=== PATIENT | male | born 1990 | race Two or more races ===

== ENCOUNTER 2021-04-18 03:09 | Emergency (ER) | payer MEDICAID ==
[~2021-04-18] VITALS: Ht 167.6 cm; Wt 63.6 kg
--- NOTE | 2021-04-18 03:19 | NUR ---
Urine sample tubed to lab at this time.
[2021-04-18 03:30] VITALS: BP 128/95
--- NOTE | 2021-04-18 03:36 | NUR ---
BIBA FOR SI. PATIENT PRESENTED TO [facility] REQUESTING HELP STATING HE HAD A PLAN TO [facility] A GUN AND SHOT HIMSELF. [facility] PLACED THE PATIENT ON A LEGAL HOLD FOR SI WITH A PLAN. EMS TRANSFERED PT DUE TO NO BED AVAILABLE AT [facility]. UPON ARRIVAL TO ED PATIENT WAS NO LONGER ENDORCING A PLAN, BUT CONTINUES TO ENDORCES SI. PATIENT STATES HE HAD [facility] IN [place]. PATIENT PROVIDED URINE FOR UA/UDA, CHANGED INTO GOWN, BELONGINGS COLLECTED AND SECURED IN LOCKER, GARAGE DOORS DOWN AND LOCKED.
[2021-04-18 03:39] LABS: AMPHETAMINE SCREEN, URINE Positive (Negative); BARBITURATE SCREEN, URINE Negative (Negative); BENZODIAZEPINE SCREEN, URINE Negative (Negative); CANNABINOID SCREEN, URINE Negative (Negative); COCAINE SCREEN, URINE Negative (Negative); METHADONE SCREEN, URINE Negative (Negative); OPIATE SCREEN, URINE Negative (Negative)
[2021-04-18 03:49] LABS: BASOPHILS % (AUTO) 1 % (0-1); EOSINOPHILS % (AUTO) 3 % (1-7); LYMPHOCYTES % (AUTO) 39 % (22-44); MEAN CORPUSCULAR HEMOGLOBIN 30.2 pg (27.5-34.5); MEAN CORPUSCULAR HGB CONC 33.2 g/dL (33.2-36.2); MONOCYTES % (AUTO) 12 % (2-9); NEUTROPHILS % (AUTO) 46 % (42-75); PLATELET COUNT 311 x10^3/uL (130-400); RED CELL DISTRIBUTION WIDTH 13.7 % (9.4-14.8)
[2021-04-18 03:58] LABS: ALBUMIN 3.4 g/dL (3.4-5.0); ANION GAP 6 mmol/L (5-15); CALCIUM 8.8 mg/dL (8.5-10.1); CHLORIDE 104 mmol/L (98-107); CREATININE 0.73 mg/dL (0.7-1.3); SALICYLATE LEVEL < 1.7 mg/dL (2.8-20.0)
--- NOTE | 2021-04-18 05:21 | NUR ---
REBECA JEREZ TAKING A LOOK AT PT
--- NOTE | 2021-04-18 05:31 | NUR ---
REBECA SCHMITZ) ACCEPTING DR. SOTELO
--- NOTE | 2021-04-18 05:54 | NUR ---
PATIENT SLEEPING ON [facility] AT THIS TIME, GARAGE DOORS DOWN AND LOCKED, PERSONAL BELONGINGS SECURED IN LOCKER
--- NOTE | 2021-04-18 06:14 | NUR ---
ATTEMPTED TO CALL REPORT TO U ON THIS PATIENT. WAS INFORMED THE PATIENT WILL BE ADMITTED ON DAYS TO ROOM 388-1
--- NOTE | 2021-04-18 06:48 | NUR ---
REPORT GIVEN TO BLAIRE MICHEL
--- NOTE | 2021-04-18 06:51 | NUR ---
ASSUMING CARE OF PT AFTER BEDSIDE REPORT FROM LOC [facility]. PT ASLEEP WITH EVEN AND UNLABORED RESPIRATIONS. SAFETY PRECAUTIONS IN PLACE. TO TX TO [facility].
--- NOTE | 2021-04-18 07:23 | NUR ---
Report to Jodee browne rn
== END 2021-04-18 17:23 ==
LOC: ED 04:30 → MERGE 04:30 → EDIP 12:46 → UNDOADMIN 12:46 → ED 17:17
DX: R45.851 Suicidal ideations (principal); Z20.822 Contact with and (suspected) exposure to COVID-19; F17.210 Nicotine dependence, cigarettes, uncomplicated; F15.10 Other stimulant abuse, uncomplicated; F17.200 Nicotine dependence, unspecified, uncomplicated
CPT/HCPCS: 36415; 80048; 80299; 80307; 80320; 80329; 82040; 85025; 87426; 99285; 99406; G0480

== ENCOUNTER 2021-04-18 06:27 | Inpatient (IN) | payer MEDICAID, OTHER ==
[~2021-04-18] VITALS: Ht 167.6 cm; Wt 51.5 kg
[2021-04-18] MEDS ORDERED: BISACODYL 10 MG SUPP PR PRN (07:30)
[2021-04-18] MEDS ORDERED: POLYETHYLENE GLYCOL 17 GM PACKET PO PRN (07:30)
[2021-04-18] MEDS ORDERED: ACETAMINOPHEN 325 MG TABLET PO PRN (07:30)
[2021-04-18] MEDS ORDERED: DOCUSATE 100 MG CAPSULE PO PRN (07:30)
[2021-04-18] MEDS ORDERED: PLEASE ENTER HEIGHT AND WEIGHT MC SCH (08:30)
[2021-04-18 09:00] VITALS: BP 122/86
[2021-04-18 11:33] VITALS: BP 122/86
[2021-04-18 11:39] VITALS: BP 122/86
[2021-04-18] MEDS ORDERED: NICOTINE 7 MG/24 HR PATCH.TD24 TD SCH (12:30)
[2021-04-18] MEDS: ESCITALOPRAM 10MG TABLET PO SCH (14:33)
[2021-04-18 18:10] LABS: MICROSCOPIC INDICATED
[2021-04-18 19:12] VITALS: BP 102/67
[2021-04-19 05:26] LABS: CHOL/HDL RATIO 3.3; FREE T4 (FREE THYROXINE) 0.97 ng/dL (0.76-1.46)
[2021-04-19 07:29] VITALS: BP 112/70
[2021-04-19] MEDS: ESCITALOPRAM 10MG TABLET PO SCH (08:30)
[2021-04-19] MEDS: NICOTINE 7 MG/24 HR PATCH.TD24 TD SCH (08:31)
[2021-04-19 19:31] VITALS: BP 121/73
[2021-04-20 08:02] VITALS: BP 120/78
[2021-04-20] MEDS: ESCITALOPRAM 10MG TABLET PO SCH (08:46)
[2021-04-20] MEDS: NICOTINE 7 MG/24 HR PATCH.TD24 TD SCH (08:46)
[2021-04-20] MEDS: ONDANSETRON ODT 4 MG PO PRN (18:01)
[2021-04-20 19:00] VITALS: BP 112/73
[2021-04-21 07:22] VITALS: BP 123/79
[2021-04-21] MEDS: NICOTINE 7 MG/24 HR PATCH.TD24 TD SCH (08:56)
[2021-04-21] MEDS: ESCITALOPRAM 10MG TABLET PO SCH (08:59)
[2021-04-21 10:02] LABS: BASOPHILS % (AUTO) 1 % (0-1); EOSINOPHILS % (AUTO) 1 % (1-7); LYMPHOCYTES % (AUTO) 22 % (22-44); MEAN CORPUSCULAR HEMOGLOBIN 30.4 pg (27.5-34.5); MEAN CORPUSCULAR HGB CONC 33.1 g/dL (33.2-36.2); MEAN PLATELET VOLUME 8.7 fL (7.4-10.4); MONOCYTES % (AUTO) 8 % (2-9); NEUTROPHILS % (AUTO) 68 % (42-75); PLATELET COUNT 246 x10^3/uL (130-400); RED BLOOD COUNT 5.04 x10^6/uL (4.38-5.82); RED CELL DISTRIBUTION WIDTH 13.6 % (9.4-14.8)
[2021-04-21 10:11] LABS: ALANINE AMINOTRANSFERASE 20 U/L (12-78); ALBUMIN 3.2 g/dL (3.4-5.0); ANION GAP 8 mmol/L (5-15); CALCIUM 9.1 mg/dL (8.5-10.1); CHLORIDE 103 mmol/L (98-107); CREATININE 0.95 mg/dL (0.7-1.3)
[2021-04-21 10:14] LABS: ALKALINE PHOSPHATASE 120 U/L (45-117); BILIRUBIN,TOTAL 0.5 mg/dL (0.2-1.0); TOTAL PROTEIN 7.9 g/dL (6.4-8.2)
[2021-04-21] MEDS ORDERED: MAGNESIUM CITRATE 300ML ORAL SOL PO ONE (11:30)
[2021-04-21 19:23] VITALS: BP 116/77
[2021-04-22 07:18] VITALS: BP 108/72
[2021-04-22] MEDS: ESCITALOPRAM 10MG TABLET PO SCH (08:37)
[2021-04-22] MEDS: NICOTINE 7 MG/24 HR PATCH.TD24 TD SCH (08:38)
[2021-04-22 19:23] VITALS: BP 112/71
[2021-04-22] MEDS: ONDANSETRON ODT 4 MG PO PRN (19:27)
[2021-04-22] MEDS: MIRTAZAPINE 15 MG TABLET PO SCH (20:19)
[2021-04-23 07:24] VITALS: BP 115/77
[2021-04-23] MEDS: NICOTINE 7 MG/24 HR PATCH.TD24 TD SCH (09:00)
[2021-04-23] MEDS: ESCITALOPRAM 10MG TABLET PO SCH (09:02)
[2021-04-23] MEDS ORDERED: MIRT-14 PO (14:02)
[2021-04-23] MEDS ORDERED: NICO-485 TD (14:02)
[2021-04-23] MEDS ORDERED: ESCI10TA97 PO (14:02)
[2021-04-23 19:27] VITALS: BP 106/62
[2021-04-23] MEDS: MIRTAZAPINE 15 MG TABLET PO SCH (20:26)
[2021-04-24 07:40] VITALS: BP 108/77
[2021-04-24] MEDS: NICOTINE 7 MG/24 HR PATCH.TD24 TD SCH (08:07)
[2021-04-24] MEDS: ESCITALOPRAM 10MG TABLET PO SCH (08:07)
== END 2021-04-24 10:20 | disposition home or self-care (01) | DRG 885 ==
LOC: 3E 07:44
PROVIDERS: ADMIT Psychiatry & Neurology Psychosomatic Medicine; ATTEND Psychiatry & Neurology Psychosomatic Medicine
DX: F33.2 Major depressive disorder, recurrent severe without psychotic features (principal); F15.20 Other stimulant dependence, uncomplicated; R45.851 Suicidal ideations; F17.210 Nicotine dependence, cigarettes, uncomplicated; Z20.822 Contact with and (suspected) exposure to COVID-19; K59.00 Constipation, unspecified; F10.10 Alcohol abuse, uncomplicated; Z79.899 Other long term (current) drug therapy; F12.10 Cannabis abuse, uncomplicated
CPT/HCPCS: 36415; 71045; 74021; 80053; 80061; 81001; 83735; 84100; 84439; 84443; 85025; 93005; Q0162